=== PATIENT | female | born 1950 | race Caucasian/White ===

== ENCOUNTER → 2017-01-11 | Outpatient (CLI) | payer BC ==
[~2017-01-11] MED LIST: ASPEC325 PO
--- NOTE | 2017-01-11 14:29 | DIAGNOSTIC IMAGING REPORT ---
CHEST 2 VIEWS ROUTINE CLINICAL HISTORY: BRONCHITIS COMPARISON STUDY: No previous studies for comparison. FINDINGS: The cardiac and mediastinal contours are normal. There is no evidence of focal pulmonary consolidation. There is no evidence of failure. No pleural effusions are visualized.[ IMPRESSION: No active disease in the chest. Electronically signed by: Jeferson Mills M.D. 01/11/2017 2:28 PM Dictated Date/Time: 01/11/2017 2:28 PM
== END | disposition home or self-care (01) ==
LOC: C.RAD1850 14:16
PROVIDERS: ATTEND Family Medicine
DX: J20.9 Acute bronchitis, unspecified (principal); R07.89 Other chest pain; R21 Rash and other nonspecific skin eruption

== ENCOUNTER → 2017-04-07 | Outpatient (CLI) | payer BC ==
--- NOTE | 2017-04-07 16:09 | MAMMOGRAPHY REPORT ---
BILATERAL DIGITAL SCREENING MAMMOGRAM TOMOSYNTHESIS WITH CAD: 04/07/2017 CLINICAL HISTORY: Routine screening. Patient has no complaints. TECHNIQUE: Breast tomosynthesis in addition to standard 2D mammography was performed. Current study was also evaluated with a Computer Aided Detection (CAD) system. COMPARISON: Comparison is made to exams dated: 10/18/2012 mammogram, 09/22/2011 mammogram, 03/04/2011 m ammogram, 08/12/2010 mammogram - [facility], and 08/12/2010 ultrasound - [facility]. BREAST COMPOSITION: The tissue of both breasts is heterogeneously dense, which may obscure small mas ses. FINDINGS: No suspicious masses, calcifications, or areas of architectural distortion are noted in ei ther breast. There has been no significant interval change compared to prior exams. IMPRESSION: ACR BI-RADS CATEGORY 1: NEGATIVE There is no mammographic evidence of malignancy. A 1 year screening mammogram is recommended. The pa tient will receive written notification of the results. Approximately 10% of breast cancers are not detected with mammography. A negative mammographic report should not delay biopsy if a clinically suggestive mass is present. Radha Tompkins M.D. ah/:04/07/2017 16:00:38 Channel Layer: Winnie DUTTON([place])(M), [facility] letter sent: Normal 1/2 BI-RADS Code: ACR BI-RADS Category 1: Negative
== END | disposition home or self-care (01) ==
LOC: C.MAMM 14:20
PROVIDERS: ATTEND Family Medicine
DX: Z12.31 Encounter for screening mammogram for malignant neoplasm of breast (principal)

== ENCOUNTER → 2017-08-04 | Outpatient (CLI) | payer BC ==
--- NOTE | 2017-08-04 15:53 | DIAGNOSTIC IMAGING REPORT ---
L WRIST MIN 3 VIEWS ROUTINE CLINICAL HISTORY: LEFT WRIST PAIN pain COMPARISON: None. DISCUSSION: Mild degenerative change first carpometacarpal joint. Minimal degenerative change intercarpal region. No evidence for fracture or dislocation. There is no evidence for soft tissue swelling. IMPRESSION: Minimal/mild degenerative change. No acute bony abnormality. The above report was generated using voice recognition software. It may contain grammatical, syntax or spelling errors. Electronically signed by: Chetan Cooper M.D. 08/04/2017 3:52 PM Dictated Date/Time: 08/04/2017 3:51 PM
== END | disposition home or self-care (01) ==
LOC: C.RDSM 15:40
PROVIDERS: ATTEND Family Medicine
DX: M25.532 Pain in left wrist (principal)

== ENCOUNTER → 2017-08-18 | Outpatient (CLI) | payer OTHER, BC ==
--- NOTE | 2017-08-18 13:19 | DIAGNOSTIC IMAGING REPORT ---
L WRIST W/NAVICULAR MIN 3 VIEWS CLINICAL HISTORY: LEFT WRIST SPRAIN S/P INJURY COMPARISON: Left wrist radiographs August 04, 2017. FINDINGS: Alignment of the left wrist is anatomic. Carpal bones are intact. No fracture is identified. There is mild arthritis within multiple articulations of the left wrist. IMPRESSION: 1. No acute fracture or dislocation of the left wrist. 2. 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 Electronically signed by: Tobin Hair M.D. 08/18/2017 1:18 PM Dictated Date/Time: 08/18/2017 1:16 PM
== END | disposition home or self-care (01) ==
LOC: C.RDSM 14:53
PROVIDERS: ATTEND Family Medicine
DX: S63.502A Unspecified sprain of left wrist, initial encounter (principal); M19.032 Primary osteoarthritis, left wrist; X58.XXXA Exposure to other specified factors, initial encounter

== ENCOUNTER → 2017-09-14 | Outpatient (CLI) | payer OTHER, BC ==
--- NOTE | 2017-09-14 13:10 | DIAGNOSTIC IMAGING REPORT ---
L UPPER EXT JOINT WITHOUT CLINICAL HISTORY: S63.502A trauma. Pain. TECHNIQUE: Multiaxial MRI acquisition COMPARISON STUDY: None FINDINGS: Somewhat limited exam due to patient motion. Study nevertheless is considered generally diagnostic. There are mild degenerative changes of the osseous structures throughout. Several degenerative marginal erosions are identified within the carpal bone region. No significant bone marrow replacing process. Moderate degenerative change of the radiocarpal articulations. Findings consistent with a tear of the triangular fibrocartilage. Moderate fluid between the distal radial ulnar articulation. Focally interosseous ligaments appear to be intact. All major structures of the carpal tunnel are intact. The extensor mechanism is intact. There is a mild soft tissue edema dorsal to the carpal bones. IMPRESSION: 1. Tear triangular fibrocartilage 2. Effusion/fluid at the radial ulnar articulation. 3. Mild degenerative arthritic changes throughout. 4. No additional acute abnormality is appreciated. All remaining ligamentous and tendinous structures appear intact. The above report was generated using voice recognition software. It may contain grammatical, syntax or spelling errors. Electronically signed by: Chetan Cooper M.D. 09/14/2017 1:09 PM Dictated Date/Time: 09/14/2017 1:03 PM
== END | disposition home or self-care (01) ==
LOC: C.MRIBC 11:42
PROVIDERS: ATTEND Family Medicine
DX: S63.502A Unspecified sprain of left wrist, initial encounter (principal); M25.48 Effusion, other site; X58.XXXA Exposure to other specified factors, initial encounter; Z88.6 Allergy status to analgesic agent; Z91.041 Radiographic dye allergy status